=== PATIENT | female | born 1935 | race Two or more races ===

== ENCOUNTER 2018-07-07 11:07 | Outpatient (CLI) | payer OTHER | END 2018-07-07 11:17 | disposition home or self-care (01) | LOC: LAB 11:07 | DX: I10 Essential (primary) hypertension (principal); E11.9 Type 2 diabetes mellitus without complications; E03.8 Other specified hypothyroidism; E78.2 Mixed hyperlipidemia ==

== ENCOUNTER 2018-07-17 14:01 | Outpatient (CLI) | payer OTHER | END 2018-07-17 14:10 | disposition home or self-care (01) | LOC: LAB 14:01 | DX: N39.0 Urinary tract infection, site not specified (principal); B96.29 Other Escherichia coli [E. coli] as the cause of diseases classified elsewhere ==

== ENCOUNTER 2019-07-20 12:58 | Outpatient (CLI) | payer OTHER | END 2019-07-20 13:02 | disposition home or self-care (01) | LOC: RAD 12:58 | DX: J44.9 Chronic obstructive pulmonary disease, unspecified (principal) ==

== ENCOUNTER 2019-07-22 08:35 | Outpatient (CLI) | payer OTHER | END 2019-07-22 08:47 | disposition home or self-care (01) | LOC: LAB 08:35 | DX: I10 Essential (primary) hypertension (principal); E11.9 Type 2 diabetes mellitus without complications; E03.8 Other specified hypothyroidism; E78.2 Mixed hyperlipidemia; Z12.11 Encounter for screening for malignant neoplasm of colon; M81.0 Age-related osteoporosis without current pathological fracture ==

== ENCOUNTER 2019-07-23 10:43 | Outpatient (CLI) | payer OTHER | END 2019-07-23 15:00 | disposition home or self-care (01) | LOC: LAB 10:43 | DX: E11.9 Type 2 diabetes mellitus without complications (principal); I10 Essential (primary) hypertension; E03.8 Other specified hypothyroidism; E78.2 Mixed hyperlipidemia; M81.0 Age-related osteoporosis without current pathological fracture; Z12.11 Encounter for screening for malignant neoplasm of colon ==

== ENCOUNTER 2021-12-29 10:36 | Outpatient (CLI) | payer OTHER | END 2021-12-29 10:45 | disposition home or self-care (01) | LOC: LAB 10:36 | PROVIDERS: ATTEND Internal Medicine Cardiovascular Disease | DX: I10 Essential (primary) hypertension (principal); E11.9 Type 2 diabetes mellitus without complications; E03.9 Hypothyroidism, unspecified; E78.2 Mixed hyperlipidemia; E55.9 Vitamin D deficiency, unspecified; Z12.11 Encounter for screening for malignant neoplasm of colon ==

== ENCOUNTER 2022-05-31 13:14 | Emergency (ER) | payer OTHER ==
[~2022-05-31] VITALS: Ht 170.2 cm; Wt 50.3 kg
== END 2022-05-31 18:16 | disposition home or self-care (01) ==
LOC: ER 13:14
DX: I10 Essential (primary) hypertension (principal)

== ENCOUNTER → 2022-07-04 08:58 | Outpatient (CLI) | payer OTHER | END | disposition home or self-care (01) | LOC: LAB 08:58 | PROVIDERS: ATTEND Ophthalmology | DX: E11.39 Type 2 diabetes mellitus with other diabetic ophthalmic complication (principal); I15.8 Other secondary hypertension; D68.32 Hemorrhagic disorder due to extrinsic circulating anticoagulants; D69.9 Hemorrhagic condition, unspecified ==

== ENCOUNTER → 2022-07-09 10:05 | Outpatient (CLI) | payer OTHER | END | disposition home or self-care (01) | LOC: LAB 10:05 | PROVIDERS: ATTEND Internal Medicine Cardiovascular Disease | DX: N39.0 Urinary tract infection, site not specified (principal) ==

== ENCOUNTER → 2023-06-12 08:28 | Outpatient (CLI) | payer OTHER ==
[2023-06-12 09:38] LABS: HEMATOCRIT 37.2 % (36.0-45.00); HEMOGLOBIN 12.5 g/dL (12.0-15.00); MEAN CELL VOLUME 87.7 fL (80.00-100.00); MEAN CORPUSCULAR HEMOGLOBIN 29.5 pg (27.00-32.0); MEAN CORPUSCULAR HGB CONC 33.6 g/dl (32.0-36.0); PLATELET COUNT 215 K/uL (150-450); RED BLOOD COUNT 4.24 M/uL (4.00-6.00); RED CELL DISTRIBUTION WIDTH 13.5 % (11.5-14.5)
[2023-06-12 09:56] LABS: PH,URINE 7.5 (5.0-8.0); URINE APPEARANCE Clear; URINE BILIRRUBIN Negative (NEGATIVE); URINE BLOOD Small; URINE COLOR Yellow; URINE GLUCOSE Negative (NEGATIVE); URINE LEUKOCYTE Moderate; URINE NITRATE Positive
[2023-06-12 10:00] LABS: URINE BACTERIA 7389.6 uL (0.0-1933); URINE EPITHELIAL CELLS 19.6 uL (0.0-38.8); URINE RBC 43.8 uL (0.0-20.8); URINE WBC 217.6 uL (0.0-23.2)
[2023-06-12 10:06] LABS: URINE PROTEIN 100 (NEGATIVE)
[2023-06-12 10:47] LABS: BILIRUBIN TOTAL 0.68 mg/dL (0.3-1.2); CALCIUM 9.5 mg/dL (8.5-10.1); CHOL HDL RATIO 2.2 (0-5.0); CREATININE SERUM 0.92 mg/dL (0.55-1.02); GFR 57.61; GLOBULINA 4.3 G/DL (2.4-3.5); POTASSIUM 3.6 mEq/L (3.5-5.1); T4 TOTAL 12.63 UG/DL (4.8-13.9); TOTAL PROTEIN 8.3 gm/dL (6.4-8.2); TSH 0.794 uIU/mL (0.358-3.74)
[2023-06-13 11:37] LABS: ob NEGATIVE (NEGATIVE)
== END | disposition home or self-care (01) ==
LOC: LAB 08:28
PROVIDERS: ATTEND Internal Medicine Cardiovascular Disease
DX: I10 Essential (primary) hypertension (principal); E11.9 Type 2 diabetes mellitus without complications; E03.9 Hypothyroidism, unspecified; E88.2 Lipomatosis, not elsewhere classified; Z12.11 Encounter for screening for malignant neoplasm of colon

== ENCOUNTER 2024-03-05 12:07 | Outpatient (CLI) | payer OTHER | END 2024-03-05 12:15 | disposition home or self-care (01) | LOC: MAMO-SONO 12:07 | PROVIDERS: ATTEND Obstetrics & Gynecology | DX: N60.11 Diffuse cystic mastopathy of right breast (principal) ==

== ENCOUNTER 2024-04-16 13:14 | Outpatient (CLI) | payer OTHER | END 2024-04-16 13:28 | disposition home or self-care (01) | LOC: RAD 13:14 | PROVIDERS: ATTEND Internal Medicine Cardiovascular Disease | DX: M12.9 Arthropathy, unspecified (principal); M19.90 Unspecified osteoarthritis, unspecified site; R51.9 Headache, unspecified ==

== ENCOUNTER 2024-06-08 08:57 | Emergency (ER) | payer OTHER ==
[~2024-06-08] VITALS: Ht 170.2 cm; Wt 54.4 kg
[2024-06-08] MEDS ORDERED: ATENOLOL25 MG (09:59)
[2024-06-08] MEDS ORDERED: LATANOPROST2.5 ML (09:59)
[2024-06-08] MEDS ORDERED: MECLIZINE HCL 25 MG TABLET PO ONE ×2 (10:15→10:18)
[2024-06-08 11:34] LABS: URINE APPEARANCE Clear; URINE BILIRRUBIN Negative (NEGATIVE); URINE BLOOD Small; URINE COLOR Yellow; URINE GLUCOSE Negative (NEGATIVE); URINE KETONE Negative (NEGATIVE); URINE LEUKOCYTE Small; URINE NITRATE Negative; URINE UROBILINOGEN 0.2 E.U./dl
[2024-06-08 11:35] LABS: HEMATOCRIT 40.7 % (36.0-45.00); HEMOGLOBIN 13.6 g/dL (12.0-15.00); MEAN CELL VOLUME 89.2 fL (80.00-100.00); MEAN CORPUSCULAR HEMOGLOBIN 29.7 pg (27.00-32.0); MEAN CORPUSCULAR HGB CONC 33.3 g/dl (32.0-36.0); PLATELET COUNT 186 K/uL (150-450); RED BLOOD COUNT 4.57 M/uL (4.00-6.00); RED CELL DISTRIBUTION WIDTH 13.8 % (11.5-14.5)
[2024-06-08 11:36] LABS: URINE BACTERIA 1698.5 uL (0.0-1933); URINE EPITHELIAL CELLS 19.1 uL (0.0-38.8); URINE RBC 91.9 uL (0.0-20.8); URINE WBC 95.2 uL (0.0-23.2)
[2024-06-08 11:45] LABS: URINE CAST 0.14 uL (0.0-1.40); URINE PROTEIN 300 (NEGATIVE)
[2024-06-08 12:14] LABS: CALCIUM 9.2 mg/dL (8.5-10.1); CREATININE SERUM 0.9 mg/dL (0.55-1.02); GFR 58.95; POTASSIUM 3.33 mEq/L (3.5-5.1)
== END 2024-06-08 16:15 | disposition home or self-care (01) ==
LOC: ER 08:57
PROVIDERS: Emergency Medicine
DX: R42 Dizziness and giddiness (principal)